=== PATIENT | male | born 1960 | race Caucasian/White ===

== ENCOUNTER 2018-12-05 05:42 | Inpatient (IN) ==
[2018-12-05] MEDS ORDERED: ceFAZolin 1,000 MG VIAL ONE (05:52)
[2018-12-05] MEDS ORDERED: VANCOMYCIN 1,000 MG VIAL ONE (05:52)
[2018-12-05] MEDS ORDERED: VANCOMYCIN INJ 1,000 MG in SODIUM CHLORIDE 0.9% 250 ML IV ONE (06:00)
[2018-12-05] MEDS ORDERED: ceFAZolin 1,000 MG in SYRINGE 1 EACH IV ONE (06:00)
[2018-12-05] MEDS ORDERED: KETAMINE 500 MG/10 ML VIAL ONE (06:23)
[2018-12-05] MEDS ORDERED: ROPIVACAINE 0.5% 30 ML VIAL ONE (06:23)
[2018-12-05] MEDS ORDERED: TRANEXAMIC ACID 1,000 MG/10 ML VIAL ONE (06:23)
[2018-12-05] MEDS ORDERED: fentaNYL 100 MCG/2 ML VIAL ONE ×2 (06:23→11:28)
[2018-12-05] MEDS ORDERED: PROPOFOL 200 MG/20 ML VIAL IV ONE (06:23)
[2018-12-05] MEDS ORDERED: BUPIVACAINE SPINAL 0.75% 2 ML AMP SPINAL ONE (06:23)
[2018-12-05] MEDS ORDERED: MIDAZOLAM 2 MG/2 ML VIAL ONE (06:23)
[2018-12-05] MEDS: LACTATED RINGERS 1,000 ML IV SCH ×2 (06:30→08:16)
[2018-12-05] MEDS ORDERED: PROMETHAZINE 25 MG/1 ML VIAL IM PRN (07:10)
[2018-12-05] MEDS ORDERED: LACTULOSE 20 GM/30 ML UDCUP PO PRN (07:10)
[2018-12-05] MEDS ORDERED: BISACODYL 10 MG SUPP RECTAL PRN (07:10)
[2018-12-05] MEDS ORDERED: MORPHINE 4 MG/1 ML VIAL IV PRN ×2 (07:10→10:30)
[2018-12-05] MEDS ORDERED: NALOXONE 0.4 MG/ML VIAL IV PRN (07:10)
[2018-12-05] MEDS ORDERED: MAGNESIUM HYDROXIDE SUSP 30 ML UDCUP PO PRN (07:10)
[2018-12-05] MEDS ORDERED: diphenhydrAMINE CAP 25 MG CAPSULE PO PRN (07:10)
[2018-12-05] MEDS ORDERED: ONDANSETRON 4 MG/2 ML VIAL IV PRN (07:10)
[2018-12-05] MEDS ORDERED: NAPROXEN 250 MG TABLET PO PRN (07:14)
[2018-12-05] MEDS ORDERED: ePHEDrine 50 MG/ML AMP ONE (09:04)
[2018-12-05] MEDS ORDERED: PHENYLEPHRINE 1 MG/10 ML SYRINGE IV ONE (09:04)
[2018-12-05] MEDS ORDERED: ONDANSETRON 4 MG/2 ML VIAL ONE (09:04)
[2018-12-05] MEDS ORDERED: KETOROLAC 30 MG/1 ML VIAL ONE (09:04)
[2018-12-05] MEDS ORDERED: INFLUENZA VIRUS VACCINE 0.5 ML SYRINGE IM ONE (10:10)
[2018-12-05] MEDS: MORPHINE PCA 30 MG/30 ML SYRINGE IV SCH (10:59)
[2018-12-05] MEDS: LISINOPRIL 20 MG TABLET PO SCH (11:00)
[2018-12-05] MEDS: DOCUSATE SODIUM 100 MG CAPSULE PO SCH ×2 (11:48→20:19)
[2018-12-05] MEDS: ASPIRIN EC 81 MG TABLET PO SCH (11:48)
[2018-12-05] MEDS: ceFAZolin 2,000 MG in PREMIX 1 EACH IV SCH (17:06)
[2018-12-05] MEDS: FONDAPARINUX 2.5 MG/0.5 ML SYRINGE SUBCUT SCH (20:20)
[2018-12-06] MEDS: ceFAZolin 2,000 MG in PREMIX 1 EACH IV SCH (00:21)
[2018-12-06] MEDS: LACTATED RINGERS 1,000 ML IV SCH (05:07)
[2018-12-06 05:54] LABS: Basophils # 0.1 10*3/uL (0.0-0.2); Basophils % 0.8 % (0.0-0.8); Eosinophils # 0.2 10*3/uL (0.0-0.87); Eosinophils % 3.1 % (0.00-10.9); Hematocrit 32.8 VOL% (42.0-52.0); Hemoglobin 10.9 GM/DL (14.0-18.0); Immature Granulocytes % 0.3 %; Immature Granulocytes Absolute 0.02 #; Lymphocytes # 1.2 10*3/uL (1.4-4.0); Lymphocytes % 16.2 % (21.2-54.2); Mean Corpuscular HGB Conc 33.2 GM/DL (32-36); Mean Corpuscular Hemoglobin 31 PG (27-34); Mean Corpuscular Volume 94.3 FL (87-102); Mean Platelet Volume 10.7 FL (9.6-12.0); Monocytes # 0.8 10*3/uL (0.11-0.8); Monocytes % 10.5 % (1.7-12.7); Neutrophils # 5.2 10*3/uL (1.4-7.4); Neutrophils % 69.1 % (38.7-73.9); Platelet Count 213 T/CUMM (130-400); Red Blood Count 3.48 MC/CUMM (3.8-5.5); Red Cell Distribution Width 12.5 % (9.3-17.3); White Blood Count 7.5 T/CUMM (4-12)
[2018-12-06 06:22] LABS: Calcium 8.1 MG/DL (8.5-10.1); Osmolality,Calculated 270.1 MOS/KG (273-304); Potassium 4.1 MMOL/L (3.5-5.1)
[2018-12-06] MEDS: MORPHINE PCA 30 MG/30 ML SYRINGE IV SCH (07:30)
[2018-12-06] MEDS: DOCUSATE SODIUM 100 MG CAPSULE PO SCH ×2 (09:15→20:44)
[2018-12-06] MEDS: LISINOPRIL 20 MG TABLET PO SCH (09:15)
[2018-12-06] MEDS: ASPIRIN EC 81 MG TABLET PO SCH (09:15)
[2018-12-06] MEDS: MORPHINE 4 MG/1 ML VIAL IV PRN ×2 (12:19→15:43)
[2018-12-06] MEDS: FONDAPARINUX 2.5 MG/0.5 ML SYRINGE SUBCUT SCH (20:44)
[2018-12-07] MEDS: LACTATED RINGERS 1,000 ML IV SCH (03:01)
[2018-12-07] MEDS: MORPHINE PCA 30 MG/30 ML SYRINGE IV SCH (07:30)
[2018-12-07] MEDS: DOCUSATE SODIUM 100 MG CAPSULE PO SCH (08:47)
[2018-12-07] MEDS: ASPIRIN EC 81 MG TABLET PO SCH (08:47)
[2018-12-07] MEDS: LISINOPRIL 20 MG TABLET PO SCH (08:47)
[2018-12-07 13:06] VITALS: BP 135/73
== END 2018-12-07 13:32 | disposition home health service (06) | DRG 470 ==
LOC: N.OR 05:42 → N.SDSINP 05:43 → N.3E 07:11
PROVIDERS: ADMIT Orthopaedic Surgery; ATTEND Orthopaedic Surgery